=== PATIENT | female | born 1990 | race Caucasian/White ===

== ENCOUNTER 2018-02-09 13:46 | Outpatient (CLI) | payer OTHER ==
[~2018-02-09] VITALS: Ht 170.2 cm; Wt 70.5 kg
[2018-02-09 13:52] VITALS: BP 130/89; PULSE 96; TEMP 98.4
[2018-02-09] MEDS ORDERED: PRENATAL PO (13:59)
[2018-02-09 14:20] VITALS: BP 126/80; PULSE 100
[2018-02-09 14:32] LABS: COLLECTION METHOD CLEAN CATCH
[2018-02-09 14:40] LABS: PH 7 (5-8); SQUAMOUS EPITHELIAL None Seen /hpf; URINE APPEARANCE Clear; URINE BACTERIA None Seen /hpf; URINE BILIRUBIN Negative (NEGATIVE); URINE BLOOD Negative (NEGATIVE); URINE COLOR Straw; URINE GLUCOSE Negative (NEGATIVE); URINE KETONE Negative (NEGATIVE); URINE LEUKOCYTE ESTERASE Negative (NEGATIVE); URINE NITRATE Negative (NEGATIVE); URINE PROTEIN(semi-quant) Negative (NEGATIVE); URINE RBC None Seen /hpf; URINE UROBILINOGEN Negative (NEGATIVE); URINE WBC None Seen /hpf
[2018-02-09 15:00] VITALS: BP 130/77; PULSE 107
== END 2018-02-09 15:10 | disposition home or self-care (01) ==
LOC: LDRO 13:46 → LDR 13:50 → LDRO 15:10
PROVIDERS: Obstetrics & Gynecology
DX: O62.9 Abnormality of forces of labor, unspecified (principal); Z3A.26 26 weeks gestation of pregnancy

== ENCOUNTER 2018-04-22 02:54 | Inpatient (IN) | payer OTHER | END 2018-04-24 11:00 | disposition home or self-care (01) | DRG 807 | LOC: LDRO 02:54 → LDR 03:15 → OB 21:21 | PROVIDERS: ADMIT Obstetrics & Gynecology | PROC: 10E0XZZ Delivery of Products of Conception, External Approach (ICD-10-PCS; principal; 2018-04-22) | PROC: 0KQM0ZZ Repair Perineum Muscle, Open Approach (ICD-10-PCS; 2018-04-22) | DX: O70.1 Second degree perineal laceration during delivery (principal); Z37.0 Single live birth; O13.4 Gestational [pregnancy-induced] hypertension without significant proteinuria, complicating childbirth; Z3A.37 37 weeks gestation of pregnancy; O76 Abnormality in fetal heart rate and rhythm complicating labor and delivery ==

== ENCOUNTER → 2018-05-16 | Outpatient (CLI) | payer OTHER ==
[~2018-05-16] MED LIST: IBU600 MG PO; PRENATAL PO
--- NOTE | 2018-05-16 15:45 | NUR ---
Pt, Suni Burleson, presents for outpatient consult with 3+ week old baby boy, Kannan Evans, because she struggles with his latch, and milk leaking from his mouth while . She also has to follow up breastfeedings with EBM because he does not transfer enough to satisfy. Kannan was born on [birth year] and weighed 7#11.3oz (3495 gms). Pt reports his lowest weight was 7#4oz at his first DrShadia garciat two days after discharge from hospital. At that time she initiated pumping and supplementing with EBM to ensure weight gain. Today Kannan weighs 9#10.7oz (4386 gms). Pt reports QS feeding, voids and stools. Kannan is being supplemented 1-2oz EBM after because he acts hungry. She also reports she is pumping after as she does not feel softened. This LC notes Kannan has an indentation to the tip of this tongue, a sublingual frenulum that may make keeping his tongue extended for the duration of difficult and a thick, long frenulum under his top lip. With latching he has chopping motion and does not pull the nipple deeply into his mouth. Pt is advised on holding the breast and baby together more securely that may help decrease leaking but he still stops frequently and needs relatched. Kannan is not very cooperative with nuring at this time, so we did not force his to breastfeed long; he only transfered 10 ml at this time. Pt did have let-down but didn't have leaking with the keeping him closer. Pt advised to have his tongue and lip frenulum evaluated by a pediatric dentist. Discussed follow up as needed to evaluate transfer. POC: Continue /supplement/pumping to ensure continued growth. Consider pediatric dentist evaluation. Pt verbalizes understanding, questions invited and answered.
== END ==
LOC: LAC 15:08
DX: Z39.1 Encounter for care and examination of lactating mother (principal); Z71.89 Other specified counseling